=== PATIENT | male | born 1950 | race Caucasian/White ===

== ENCOUNTER 2017-04-06 08:43 | Day surgery (SDC) | payer MEDICARE, OTHER ==
[2017-03-31 09:34] LABS: HEMATOCRIT 40.4 % (40.0-51.0); HEMOGLOBIN 13.9 g/dL (13.6-17.8)
[2017-03-31 09:49] LABS: CHLORIDE, SERUM 108 MMOL/L (96-112); CREATININE 1.29 MG/DL (0.70-1.30); GFR AFRICAN AMERICAN 66 ML/MIN (>=60); GFR NON AFRICAN AMERICAN 57 ML/MIN (>=60); POTASSIUM, SERUM 4.6 MMOL/L (3.5-5.3)
[2017-03-31 09:50] LABS: BUN (BLOOD UREA NITROGEN) 22 MG/DL (6-23); CALCIUM, SERUM 10.2 MG/DL (8.5-10.4); CO2 (CARBON DIOXIDE) 24 MMOL/L (24-34); GLUCOSE, SERUM 99 MG/DL (60-99); SODIUM, SERUM 143 MMOL/L (135-148)
--- NOTE | ~2017-04-06 | OP ---
Record Of Operation [facility] [address] [place]. [address] NAME: AKI CAMERON : 48 STATUS : REG [facility]#: [id number] AGE: 66 ADM/REG DATE : 04/06/17 MR#: [id number] REPORT SERV DATE: 04/06/17 DICTATED BY: TORITO LOPEZ DATE: 04/06/17 REPORT STATUS : Draft TRANSCRIBED BY: MODL DATE: 04/06/17 DATE OF PROCEDURE: 04/06/2017 PREOPERATIVE DIAGNOSES: Bilateral hip and buttock claudication, right worse than left. POSTOPERATIVE DIAGNOSIS: Bilateral hip and buttock claudication, right worse than left. PROCEDURE: 1. Ultrasound-guided percutaneous access, right common femoral artery. 2. Abdominal aortogram. 3. Bilateral lower extremity arteriogram. 4. Percutaneous angioplasty, right common iliac artery. 5. Percutaneous angioplasty right external iliac artery. SURGEON: Torito Lopez M.D. ANESTHESIA: Local with MAC. ESTIMATED BLOOD LOSS: 10 mL. CONTRAST: 75 mL. IV FLUIDS: 500 mL. COMPLICATIONS: None. INDICATION: Mr. Cameron is a pleasant, 66-year-old man with longstanding history of peripheral arterial disease. He has developed worsening hip and buttock claudication with evidence of iliac stenosis on duplex. He is recommended for arteriogram, percutaneous intervention if needed. DETAILS OF PROCEDURE: After informed consent was obtained, the patient was brought to the endovascular suite and placed in supine position. After administration of IV sedation, he was prepped and draped in usual sterile fashion. A time-out was performed. I commenced the procedure with ultrasound-guided percutaneous access, right common femoral artery. This was done after anesthetizing the right groin with local anesthetic. Permanent image of the artery documenting patency was saved and stored in the patient's chart. I accessed with a micropuncture needle, passed a micropuncture wire, confirmed intra-arterial under fluoroscopy. I then placed a micropuncture sheath. I then upsized to a 5-Bengali sheath over a Bentson wire. The Bentson wire and [place] flush catheter advanced in the abdominal aorta. Abdominal aortogram was performed, which showed the infrarenal aorta to be patent with no stenosis. There was [id number] atherosclerotic disease. There was a known small infrarenal aortic aneurysm without involvement of common iliac arteries. Renal arteries were patent bilaterally with no stenosis. Common iliacs are heavily diseased. There was no significant stenosis to the left. In the mid common iliac, there was a high- grade stenosis. In the proximal right external iliac artery, there was moderate stenosis. Record Of Operation [facility] [address] [place]. [address] NAME: AKI CAMERON : 48 STATUS : REG [facility] PAT#: [id number] AGE: 66 ADM/REG DATE : 04/06/17 MR#: [id number] REPORT SERV DATE: 04/06/17 DICTATED BY: TORITO LOPEZ DATE: 04/06/17 REPORT STATUS : Draft TRANSCRIBED BY: NICOLÁS DATE: 04/06/17 There was no significant stenosis in the common or external iliacs on the left. Internal iliacs were patent bilaterally. Next, I pulled the flush catheter down to the bifurcation, and flexed it over the contralateral iliac with a Glidewire. I advanced the flush catheter over a Glidewire over the bifurcation. I then performed left leg arteriogram. This showed the common femoral and deep femoral arteries to be patent with no stenosis. The SFA has mild diffuse disease with no high-grade stenosis. The popliteal artery was patent with no stenosis. There was a three-vessel runoff via moderately diseased tibial vessels. After that, we systemically heparinized. I placed a SuitMe wire. I then upsized the 5-Bengali sheath to a 6 x 45 sheath. I pulled the sheath back over the bifurcation with magnified views of the right common and external iliac arteries. I then selected an 8 mm x 40 mm balloon. Balloon angioplasty was performed 1st in the proximal external iliac and then the mid common iliac artery. There were two separate lesions. Repeat contrast injection shows satisfactory result with no significant residual appearance and no dissection. After that, I performed right leg arteriogram, which showed the common femoral and deep femoral arteries patent with no stenosis. The SFA was patent. There was a stent in place in the distal SFA. There was less than 50% stenosis in the proximal portion of the stent, not flow limiting. There was a three-vessel runoff below the knee. After that, wires and catheters were removed. The access site was closed with ProGlide. The patient tolerated the procedure well with no complications. TIN/NICOLÁS Torito Lopez M.D. / [id number] CC: Torito Lopez M.D.
[~2017-04-06 08:43] MED LIST: ASAB PO; BACTRONASA NAS; BEN25 PO; COZAAR100 MG PO; DSS PO; EZFE 200200 MG PO; FLONASE NAS; GLUCOPHAGE1000 MG PO; HYDROCHLOROT25 MG PO; INSNOVR SC; LANTUS SC; LIPITOR20 PO; LOP25 PO; LYRICA75 PO; MUCINEX D PO; NEUR600 PO; NEXIUM40 PO; NORCO1 TA1 PO; NORV5 PO; NOVOPEN SC; PLAVIX PO; PLETAL50 PO; PRAVACHOL40 MG PO; PRILO PO; VITD PO; WELLSR150 PO; ZESTRIL20 MG PO; ZYRTEC ALLGY10 MG PO
== END 2017-04-06 18:09 | disposition home or self-care (01) ==
LOC: SDC 08:43 → SSU1 13:40
PROVIDERS: Surgery
PROC: B41DZZZ Fluoroscopy of Aorta and Bilateral Lower Extremity Arteries (ICD-10-PCS; principal; 2017-04-06 10:15)
PROC: 047C3ZZ Dilation of Right Common Iliac Artery, Percutaneous Approach (ICD-10-PCS; 2017-04-06 10:15)
PROC: 047H3ZZ Dilation of Right External Iliac Artery, Percutaneous Approach (ICD-10-PCS; 2017-04-06 10:15)
DX: I70.213 Atherosclerosis of native arteries of extremities with intermittent claudication, bilateral legs (principal); I25.10 Atherosclerotic heart disease of native coronary artery without angina pectoris; I25.2 Old myocardial infarction; I71.4 Abdominal aortic aneurysm, without rupture; I12.9 Hypertensive chronic kidney disease with stage 1 through stage 4 chronic kidney disease, or unspecified chronic kidney disease; E11.22 Type 2 diabetes mellitus with diabetic chronic kidney disease; E11.51 Type 2 diabetes mellitus with diabetic peripheral angiopathy without gangrene; E11.40 Type 2 diabetes mellitus with diabetic neuropathy, unspecified; E78.00 Pure hypercholesterolemia, unspecified; N18.2 Chronic kidney disease, stage 2 (mild); J44.9 Chronic obstructive pulmonary disease, unspecified; G47.33 Obstructive sleep apnea (adult) (pediatric); M19.90 Unspecified osteoarthritis, unspecified site; K21.9 Gastro-esophageal reflux disease without esophagitis; K27.9 Peptic ulcer, site unspecified, unspecified as acute or chronic, without hemorrhage or perforation; K44.9 Diaphragmatic hernia without obstruction or gangrene; H91.93 Unspecified hearing loss, bilateral; H93.19 Tinnitus, unspecified ear; F41.9 Anxiety disorder, unspecified; F17.210 Nicotine dependence, cigarettes, uncomplicated; Z99.89 Dependence on other enabling machines and devices; Z95.1 Presence of aortocoronary bypass graft; Z91.041 Radiographic dye allergy status; Z79.82 Long term (current) use of aspirin; Z79.02 Long term (current) use of antithrombotics/antiplatelets; Z79.51 Long term (current) use of inhaled steroids; Z79.4 Long term (current) use of insulin; Z79.84 Long term (current) use of oral hypoglycemic drugs; Z79.899 Other long term (current) drug therapy; Z97.4 Presence of external hearing-aid; Z95.820 Peripheral vascular angioplasty status with implants and grafts; Z87.442 Personal history of urinary calculi; Z98.41 Cataract extraction status, right eye; Z98.42 Cataract extraction status, left eye; Z98.890 Other specified postprocedural states
CPT/HCPCS: 37220; 37222; 75625; 75716; 76937; 80048; 82962; 85014; 85018; 93005; A9270-GY; C1725; C1760; C1769; C1894; J1200; J2250; J2930; Q9967